=== PATIENT | female | born 1980 | race Caucasian/White ===

== ENCOUNTER 2020-12-06 20:18 | Emergency (ER) | payer BC, OTHER ==
[2020-12-06 20:26] VITALS: RESP 20; TEMP 98.3
[2020-12-06] MEDS ORDERED: HYDROcodone/APAP 5-325MG 1 EACH TAB PO STA (21:03)
[2020-12-06] MEDS ORDERED: predniSONE 50 MG TAB PO STA (21:03)
[2020-12-06] MEDS ORDERED: EPINEPHrine 1 MG/ML 1 ML AMP IM STA (21:04)
--- NOTE | 2020-12-06 22:11 | ED ---
Allergic Reaction HPI - General Chief complaint: Allergic Reaction Stated complaint: Allergic reaction Time Seen by Provider: 12/06/20 20:33 Source: patient Mode of arrival: ambulatory Limitations: no limitations - History of Present Illness Initial Comments: This 40-year-old female who presents emergency department for facial swelling. The patient states that it started 2 days ago. She states it's most localized to the right side of her face and upper lip. She presented to an outside ER about a day ago and she was diagnosed with an oral infection. She started on Augmentin and told to follow-up with a dentist. The patient states that she continued to have swelling which does seem to be relieved with Benadryl. She states that the swelling causes pain and itching. She states that she feels like she has a little bit of swelling in her throat. Denies any shortness of breath. She does admit to a lump on the top of her mouth which she states is increasing in size. Denies any fevers or chills. Denies any other complaints. - Related Data Previous Rx's Medication Instructions Recorded Albuterol Inhaler [Ventolin Hfa 1 puff INHALATION RT-QID PRN #1 12/06/20 Inhaler] inhaler Clindamycin HCl 600 mg PO Q12HR #28 cap 12/06/20 EPINEPHrine (Auto Inject) [Epipen] 0.3 mg IM ONCE PRN #1 pen 12/06/20 predniSONE 50 mg PO DAILY #5 tab 12/06/20 Allergies Allergy/AdvReac Type Severity Reaction Status Date / Time No Known Allergies Allergy Verified 12/06/20 20:26 Review of Systems ROS Statement: Those systems with pertinent positive or pertinent negative responses have been documented in the HPI. ROS Other: All systems not noted in ROS Statement are negative. Past Medical History Past Medical History: No Reported History History of Any Multi-Drug Resistant Organisms: None Reported Past Surgical History: Section Additional Past Surgical History / Comment(s): fusion Past Psychological History: No Psychological Hx Reported Smoking Status: Never smoker Past Alcohol Use History: None Reported Past Drug Use History: None Reported General Exam - General Exam Comments Initial Comments: Constitutional: [Awake alert] [Appears comfortable] Head: [Normocephalic atraumatic] Eyes: [no conjunctival injection] [No scleral icterus] [EOMI] ENT: The patient does have significant swelling to the upper lip and the right cheek and periorbital areas. No erythema. It's nontender. No hives noted. The patient also has a fluctuant mass to the roof of her mouth more to the right and anterior aspect. She has maybe some mild uvular swelling. No evidence for peritonsillar abscess. Neck: [No JVD] [Supple] Heart: [Regular rate rhythm] [normal S1-S2] [no murmurs] Lungs: [Clear to auscultation bilaterally] [No wheezing] [No rales] Abdomen: [Soft] [nondistended] [nontender] Extremities: [Non edematous] [DP pulses intact] [Radial pulses intact], No rashes noted Neuro: [A&Ox3] [No focal neurologic deficits] Psych: [Appropriate mood and affect] Limitations: no limitations Course Vital Signs 12/06/20 12/06/20 20:23 21:42 Temperature 98.3 F Pulse Rate 101 H 96 Respiratory 20 20 Rate Blood Pressure 143/95 135/97 O2 Sat by Pulse 99 100 Oximetry Procedures - Incision & Drainage Consent Obtained: verbal consent Site: oral I&D Cleaning Method: Chloroprep Sterile Field Used?: No Scalpel Used: #11 Needle Aspiration Performed?: Yes Irrigation Performed?: No I&D Drainage Obtained: Pus, Blood Culture Obtained?: No Patient Tolerated Procedure: well Medical Decision Making - Medical Decision Making This 40-year-old female presents emergency department for facial swelling and also what appeared to be an abscess on the roof of her mouth. Since patient com plained of some difficult with swallowing patient was given epinephrine and steroids here in the emergency department. The patient was monitored for about an hour or so and she had great improvement in her symptoms. She stated that she had better swallowing and also that her swelling was going down. I did attempt to do a 90 of the fluid collection on the roof of her mouth and a little bit of purulent drainage came out but not much. The patient did have her and wax which septic clindamycin. Im going to send her home on steroids as well. I gave her an EpiPen and inhaler at her request.Patient was advised to follow-up with her dentist as soon as possible and continue steroids at home return emergency Department for any worsening or changing symptoms. Disposition Clinical Impression: Oral abscess, Allergic reaction Disposition: HOME SELF-CARE Condition: Stable Instructions (If sedation given, give patient instructions): Abscess Incision and Drainage (ED), Anaphylaxis (ED) Prescriptions: Clindamycin HCl 600 mg PO Q12HR #28 cap EPINEPHrine (Auto Inject) [Epipen] 0.3 mg IM ONCE PRN #1 pen PRN Reason: Anaphylaxis predniSONE 50 mg PO DAILY #5 tab Albuterol Inhaler [Ventolin Hfa Inhaler] 1 puff INHALATION RT-QID PRN #1 inhaler PRN Reason: Shortness Of Breath Is patient prescribed a controlled substance at d/c from ED?: Yes If prescribed controlled substance>3 days was MAPS reviewed?: Prescribed <3 Days Referrals: Nonstaff,Physician [Primary Care Provider] - 1-2 days
[2020-12-06] MEDS ORDERED: ACET/COD 300 MG/30 MG STARTER PACK 6 TAB BTL PO STA (22:39)
[2020-12-07 00:03] VITALS: BP 137/82; PULSE 89
== END 2020-12-06 22:51 | disposition home or self-care (01) ==
LOC: EC 20:18
DX: T78.40XA Allergy, unspecified, initial encounter (principal); K04.7 Periapical abscess without sinus
CPT/HCPCS: 99283; 41800; J0171; J7512